=== PATIENT | female | born 1980 | race Two or more races ===

== ENCOUNTER 2021-10-19 09:00 | Outpatient (CLI) | payer OTHER | END 2021-10-19 09:30 | disposition home or self-care (01) | LOC: PPH VACUNA 09:00 | PROVIDERS: ATTEND Emergency Medicine Pediatric Emergency Medicine | DX: Z23 Encounter for immunization (principal) ==

== ENCOUNTER 2021-12-27 09:46 | Emergency (ER) | payer OTHER ==
[~2021-12-27] VITALS: Ht 162.6 cm; Wt 76.2 kg
== END 2021-12-27 12:25 | disposition home or self-care (01) ==
LOC: ER 09:46
DX: U07.1 COVID-19 (principal); J06.9 Acute upper respiratory infection, unspecified